=== PATIENT | female | born 1970 | race Caucasian/White ===

== ENCOUNTER 2021-11-08 16:58 | Emergency (ER) | payer OTHER, SELFPAY ==
--- NOTE | ~2021-11-08 | CT_ITS ---
EXAMINATION: CT ABDOMEN AND PELVIS WITHOUT CONTRAST CLINICAL INFORMATION: Left-sided flank pain with history of kidney stones COMPARISON: CTA chest 09/16/2009 TECHNIQUE: Multidetector volumetric imaging was performed from the superior aspect of the liver through the pubic symphysis. Sagittal and coronal reformatted images were obtained on the technologist's workstation. This CT examination was performed using dose optimization techniques as appropriate, variously including the following: *Automated exposure control *Adjustment of mA and/or kV according to patient size (this includes techniques or standardized protocols for targeted exams where dose is matched to indication/reason for exam; i.e. extremities or head) *Use of iterative reconstruction technique DLP: 574 mGy-cm FINDINGS: LUNG BASES: The visualized lung bases are unremarkable. Scarring/atelectasis is present at the right lung base. LIVER, GALLBLADDER, AND BILIARY TREE: The liver is enlarged with an extremely large left lobe of the liver. 2 masses are seen in the left lobe of the liver one measuring 4.7 x 3.4 x 4.5 cm smaller mass just to the left measuring 1.8 x 1.9 x 1.7 cm. These masses measure 40 Hounsfield units and are not simple cysts. Suture lines appear to be present in the liver. No biliary ductal dilatation is present. The gallbladder appears to be absent PANCREAS: Unremarkable. SPLEEN: Upper limits of normal in size at 12.3 cm. ADRENAL GLANDS: Unremarkable. KIDNEYS AND URETERS: The kidneys are normal in size, shape, and attenuation. Bilateral nonobstructing renal calculi are present. 3 calculi are present on the right the largest in the upper pole measuring on the left, at least 5 calculi are seen the largest at the lower pole measuring 4 mm. The largest stone measures 543 Hounsfield units which includes significant partial volume averaging. It is 7.6 cm from the posterior axillary line. No hydronephrosis, hydroureter, or ureteral calculi seen. No perinephric stranding. BLADDER: Poorly filled but no stones are present. GASTROINTESTINAL TRACT: A posterior gastric diverticulum is present (4:120). The small and large bowel are unremarkable. The appendix is unremarkable. ABDOMINAL WALL: No significant hernia is appreciated. LYMPH NODES: No retroperitoneal lymphadenopathy. VASCULAR: Unremarkable. PELVIC VISCERA: There is an anteverted lobular fibroid uterus, tipped to the right. Abnormal adnexal mass or free intraperitoneal fluid is not seen. OSSEOUS STRUCTURES: Unremarkable. CT/CT abdomen pelvis wo con IMPRESSION: 1. There is bilateral nephrolithiasis but no evidence of obstruction. 2. Markedly enlarged liver with 2 solid masses. These could represent hemangiomas but appearances are indeterminate. Further evaluation with dynamic liver MRI is recommended. Fleischner guidelines were followed.
[2021-11-08 18:01] VITALS: BP 125/68; PULSE 96; RESP 18; TEMP 36.8; O2SAT 100; BMI 24.7
--- NOTE | 2021-11-08 20:01 | PC.NURSE ---
Per patient i dont' want to repeat the same stuff the urgent care already did .
--- NOTE | 2021-11-08 20:05 | ED.GENADULT ---
HPI - General Adult General Chief complaint: General Medical Stated complaint: Kidney stone-sent from urgent care Time Seen by Provider: 11/08/21 20:05 Source: patient Mode of arrival: ambulatory History of Present Illness HPI narrative: patient been coughing last few days also complaining of left flank pain she is on her periods was seen at urgent care center chest x-ray was negative COVID was negative ,in the urine did notice some blood and sent the patient here patient does have history of kidney stone about 5 years ago no vomiting no diarrhea no chills no fever no abdominal pain Related Data Allergies Allergy/AdvReac Type Severity Reaction Status Date / Time aspirin [ASPIRIN] Allergy Intermediate NAUSEA & Verified 11/08/21 18:01 VOMITING ciprofloxacin [From CIPRO] Allergy Intermediate RASH Verified 11/08/21 18:01 gluten [GLUTEN] Allergy Intermediate WORSENED Verified 11/08/21 18:01 IBS SYMPTOMS From CIPRO Allergy Intermediate RASH Uncoded 11/08/21 18:01 From DEMEROL Allergy Intermediate NAUSEA, Uncoded 11/08/21 18:01 VOMITING, VISUAL HALLUCINATIONS SURGICAL TAPE Allergy Intermediate RASH Uncoded 11/08/21 18:01 [facility]LY [facility] Past Medical History Medical History (Updated 11/09/21 @ 00:02 by Ruby Beasley) Anxiety disorder, unspecified Disorder of thyroid, unspecified Hepatic hemangioma IBS (irritable bowel syndrome) Migraines Surgical History (Updated 11/08/21 @ 18:06 by Yadira Najera RN) H/O thyroidectomy Hx of excision of tumor of brain meninges Social History Social History Alcohol intake: never Smoked in Last 30 Days: No Use of substances other than those prescribed or required for medical reasons: No Advance Directives: No Advance Directives Information Provided: No Patient : No Physical Exam ED Vital Signs: Vital Signs - 24 hr 11/08/21 18:01 11/08/21 20:52 Temperature 98.3 F Pulse Rate 96 85 Respiratory Rate 18 18 Blood Pressure 125/68 138/56 L Pulse Oximetry 100 100 BMI result Body Mass Index 24.7 Appearance: Alert. Oriented X3. No acute distress. ENT: Pharynx normal. Oral Mucosa moist Neck: Normal inspection. Neck supple. CVS: Normal heart rate and rhythm. Pulses normal. Respiratory: No respiratory distress. Equal air entry bilateral, no wheezing/rales/rhonchi Abdomen: Soft and nontender. Bowel sounds are present, no mass palpable, mild left CVA tenderness Skin: Skin warm and dry. Normal skin color. Normal skin turgor. Extremities: No lower extremity edema. No calf tenderness Neuro: Oriented X 3. Medical Decision Making MDM Narrative Medical decision making narrative: patient's CT scan showed bilateral nonobstructive kidney stones without any hydronephrosis not a cause for the pain likely muscular discharge patient home advised to follow with urologist Lab Data Lab results reviewed: Yes I reviewed the patient's lab results. Labs: Lab Results 11/08/21 Range/Units 20:56 Urine Color YELLOW Urine Appearance CLEAR Urine pH 5.5 (5.0-8.0) Ur Specific [place] <= 1.005 (1.005-1.025) Urine Protein NEG (NEG-TRACE) MG/DL Urine Glucose (UA) NEG (NEG) MG/DL Urine Ketones NEG (NEG) MG/DL Urine Blood 3+ H (NEG) Urine Nitrite NEG (NEG) Ur Leukocyte Esterase NEG (NEG) Urine RBC 5-9 H (0) /HPF Urine WBC 0 (0-4) /HPF Ur Squamous Epith Cells 1+ /LPF Urine Bacteria 1+ /LPF Discharge Plan Discharge Clinical Impression: Bilateral kidney stones Patient Disposition: Home, Self-Care Instructions: Kidney Stones (ED) Additional Instructions: drink plenty of fluids your kidney stone likely not causing the pain Tylenol/Motrin for pain as needed follow with Urology Referrals: William Hollins MD [Physician] - 1 week Interventions: ED Discharge Assessment Last Done: 11/08/21 22:02 Discharge Date/Time: 11/08/21 22:02
[2021-11-08 20:52] VITALS: BP 138/56; PULSE 85; RESP 18; O2SAT 100
[2021-11-08 21:03] LABS: Appearance Urine CLEAR; Color Urine YELLOW; Glucose Urine UA NEG (NEG); Leukocyte Esterase Urine NEG (NEG); Nitrite Urine NEG (NEG); PH 5.5 (5.0-8.0); Specific Gravity - Urine <= 1.005 (1.005-1.025); UACC Culture Trigger NO; Urine Blood 3+ (NEG); Urine Ketones NEG (NEG); Urine Protein NEG (NEG-TRACE)
[2021-11-08 21:10] LABS: Bacteria Urine 1+ /LPF; Squamous Epithelial Cell Urine 1+ /LPF; WBC Urine 0 /HPF (0-4)
== END 2021-11-08 22:02 | disposition home or self-care (01) ==
PROVIDERS: Emergency Provider Internal Medicine; PCP Nurse Practitioner Family
DX: N20.0 Calculus of kidney (principal); R10.9 Unspecified abdominal pain; R16.0 Hepatomegaly, not elsewhere classified
CPT/HCPCS: 74176; 81001; 81003; 99284

== ENCOUNTER → 2021-11-29 08:17 | Outpatient (BNVA) | payer OTHER, SELFPAY | PROVIDERS: PCP Nurse Practitioner Family | DX: Z13.89 Encounter for screening for other disorder (principal) ==

== ENCOUNTER → 2021-12-28 11:20 | Outpatient (BNVA) | payer OTHER, SELFPAY | PROVIDERS: PCP Nurse Practitioner Family; Visit Provider Urology | DX: N20.0 Calculus of kidney (principal) ==

== ENCOUNTER 2022-06-10 10:37 | Outpatient (REF) | payer OTHER, SELFPAY ==
--- NOTE | ~2022-06-10 | US_ITS ---
EXAMINATION: US RETROPERITONEAL LIMITED (RENAL ONLY) CLINICAL INFORMATION: Calculus of kidney. COMPARISON: CT abdomen and pelvis without contrast 11/08/2021. TECHNIQUE: Real-time imaging of the kidneys. FINDINGS: RIGHT KIDNEY: 8.1 x 4.5 x 4.4 cm (SAG x AP x TRV). The kidney is normal in size, contour, and echogenicity. Renal cortical thickness is normal. No hydronephrosis. There are several nonobstructive renal calculi, in the number of approximately 6, largest measuring up to 4 mm in size. There is a 0.8 x 0.8 x 0.9 cm homogeneously hyperechoic lesion in the lateral surface of the interpolar region, which demonstrated macroscopic fat on a prior CT from 11/08/2021, favoring to represent an angiomyolipoma. LEFT KIDNEY: 12.1 x 5.6 x 4.4 cm (SAG x AP x TRV). The kidney is normal in size, contour, and echogenicity. Renal cortical thickness is normal. No hydronephrosis. There is a 0.4 cm nonobstructive calculus in the upper pole. There is a very small 0.7 x 0.5 x 0.6 cm homogeneously hyperechoic lesion in the upper pole, possibly correlated with a tiny focus of macroscopic fat on the prior CT from 11/08/2021. US/US renal BI IMPRESSION: 1. Bilateral nonobstructive renal calculi, the largest measuring up to 4 mm. 2. There is a 0.9 cm hyperechoic lesion in the lateral surface of the interpolar region of the right kidney, which likely represents an angiomyolipoma. 3. There is a smaller approximately 0.7 cm homogeneously hyperechoic lesion in the upper pole of the left kidney, possibly correlating with a tiny focus of macroscopic fat on the prior CT, though overall limitedly assessed due to its size. Recommend a follow-up renal ultrasound in 6 months to reassess.
== END 2022-06-10 10:38 | disposition home or self-care (01) ==
LOC: HO.US 10:37
PROVIDERS: Visit Provider Urology
DX: N20.0 Calculus of kidney (principal)
CPT/HCPCS: 76775

== ENCOUNTER 2023-06-20 10:38 | Outpatient (REF) | payer OTHER, SELFPAY ==
--- NOTE | ~2023-06-20 | US_ITS ---
EXAMINATION: US RETROPERITONEAL LIMITED (RENAL ONLY) CLINICAL INFORMATION: Calculus of kidney. COMPARISON: Renal ultrasound 06/10/2022, CT abdomen and pelvis 11/08/2021. TECHNIQUE: Real-time imaging of the kidneys. Limited visualization due to bowel gas. FINDINGS: RIGHT KIDNEY: 10.0 x 3.5 x 4.8 cm (SAG x AP x TRV). Renal calculi measures 0.4 cm and 0.3 cm in the lower pole. No hydronephrosis. Right renal midpole 1.0 x 0.8 x 0.8 cm echogenic lesion measured 0.8 x 0.8 x 0.9 cm in 2021 and demonstrated macroscopic fat on CT of 11/08/2021 felt to possibly represent an angiomyolipoma. Limited visualization. LEFT KIDNEY: 11.2 x 4.5 x 4.3 cm (SAG x AP x TRV). Midpole 0.4 cm and lower pole 0.4 cm calculi. No hydronephrosis. Left renal upper pole 0.7 x 0.6 x 0.5 cm echogenic lesion measured 0.7 x 0.5 x 0.6 cm on ultrasound of 06/13/2022 and felt to demonstrate macroscopic fat on prior CT, characterization compares small size. US/US renal BI IMPRESSION: 1. Bilateral nephrolithiasis. No hydronephrosis. 2. Right renal 1.0 cm lytic lesion likely represents an angiomyolipoma. Left renal 0.7 cm upper pole echogenic lesion, possibly representing an angiomyolipoma, but difficult characterize due to small size. Dedicated MRI employing renal mass protocol should be considered for further evaluation.
== END 2023-06-20 10:39 | disposition home or self-care (01) ==
LOC: HO.US 10:38
PROVIDERS: PCP Nurse Practitioner Family; Visit Provider Urology
DX: N20.0 Calculus of kidney (principal)
CPT/HCPCS: 76775

== ENCOUNTER 2023-07-09 11:27 | Outpatient (AMB) | payer OTHER, SELFPAY ==
--- NOTE | 2023-07-09 11:40 | A.OFFVIS_ITS ---
Intake Intake Visit Reasons: 1Y US(set) Intake Note: Patient is present for Ultrasound Follow Up Urology Medication: Vitamin B6 Blood Thinner: none Experimental Psychologist Required: No Allergies aspirin [ASPIRIN] Allergy (Intermediate, Verified 12/28/21 11:21) NAUSEA & VOMITING ciprofloxacin [From CIPRO] Allergy (Intermediate, Verified 12/28/21 11:21) RASH gluten [GLUTEN] Allergy (Intermediate, Verified 12/28/21 11:21) WORSENED IBS SYMPTOMS From CIPRO Allergy (Intermediate, Uncoded 12/28/21 11:21) RASH From DEMEROL Allergy (Intermediate, Uncoded 12/28/21 11:21) NAUSEA, VOMITING, VISUAL HALLUCINATIONS SURGICAL TAPE Allergy (Intermediate, Uncoded 12/28/21 11:21) RASH Medication List - Last Reconciled 07/09/23 by William Hollins MD [id number] 50-325-40 mg 1 - 2 tabs PO desog-e.estradiol/e.estradiol 0.15-0.02 mgx21 /0.01 mg x 5 ([place] (28)) 0 tabs PO levothyroxine 100 mcg PO DAILY nitrofurantoin macrocrystal 100 mg PO BID nortriptyline 25 mg PO TID omeprazole 20 mg PO DAILY ondansetron HCl 8 mg PO DAILY PRN pyridoxine (vitamin B6) 50 mg PO DAILY 90 days pyridoxine (vitamin B6) (Vitamin B-6) 50 mg PO DAILY HPI HPI Comments History of Present Illness Details Monet is a pleasant female. She is a patient of . She seen for the following urologic conditions - nephrolithiasis Stable stone burden Reiterated need to maintain fluid intake Vitamin B6 and lemon juice Twelve month follow-up - renal ultrasound and KUB Noted background with prostate cancer father, breast cancer and, prior benign brain lesion Nephrolithiasis Prior history stones Medical history complicated by large hemangioma on liver and seen by specialist from [facility]. Also prior brain tumor with gamma knife therapy. Imaging - 10/30 CT scan shows high right kidney u nder diaphragm with lower left kidney and liver larger on left than right, bilateral 4 mm stones - 06/01 renal ultrasound bilateral 4 mm stones - 06/02 renal ultrasound bilateral 3-4 m m stones 24 hr urine - 12/30 low volume, borderline low citrat e otherwise all other parameters within normal limits PFSH Medical History Anxiety disorder, unspecified Disorder of thyroid, unspecified Hepatic hemangioma IBS (irritable bowel syndrome) Migraines Renal calculi Surgical History H/O thyroidectomy Hx of excision of tumor of brain meninges Social History Alcohol intake: never Review of Systems Const Denies chills and Denies fever(s) Card Reports no additional complaints and Denies syncope Resp Denies cough GI Denies abdominal pain and Denies heartburn Reports as per HPI and Denies change in libido Neuro Denies syncope Psych Denies change in libido Endo Denies change in libido Physical Exam Const General: cooperative, healthy appearing, comfortable and no acute distress Orientation/consciousness: patient oriented x3 HEENT Face and sinus: Yes normal facial exam Mouth: moist mucous membranes Neck Neck: Yes normal visual inspection, Yes full ROM and Yes trachea midline Chest Chest palpation & inspection: normal inspection of the chest Resp Effort & Inspection: normal respiratory effort, able to speak in complete sentences and no respiratory distress GI Inspection: Yes normal to inspection Back/Spine/Pelvis Cervical Spine: normal cervical lordosis Thoracic/Lumbar Spine: thoracic and lumbar spine normal to inspection Skin General skin exam: no rashes or lesions noted Neuro General: patient oriented x3, gait normal, tone normal and moves all extremities Extrem General: Yes normal to inspection and Yes capillary refill normal Results AMB Urinalysis, Automated UA Leukoctes 15 Justyn/uL Last Edit by CHAD Gant on 07/09/23 11:45 UA Nitrite Negative Last Edit by CHAD Gant on 07/09/23 11:45 UA Urobilinogen 0.2 mg/dL Last Edit by CHAD Gant on 07/09/23 11:4 5 UA Protein 15 mg/dL Last Edit by Surinder Maria A on 07/09/23 11:45 UA pH 7.5 Last Edit by Surinder Maria A on 07/09/23 11:45 UA Blood 25 Kyle/uL Last Edit by Surinder Maria A on 07/09/23 11:45 UA Specific [place] 1.010 Last Edit by Surinder Maria A on 07/09/23 11: 45 UA Ketone Negative Last Edit by Surinder Maria A on 07/09/23 11:45 UA Bilirubin 0 mg/dL Last Edit by Surinder Maria A on 07/09/23 11:45 UA Glucose 0 mg/dL Last Edit by Surinder Maria A on 07/09/23 11:45 Results Reviewed Results Reviewed: Laboratory Last Values Urine pH (Auto) 7.5 07/09/23 11:44 Specific [place] (Auto) 1.010 07/09/23 11:44 Urine Protein (Auto) 15 mg/dL 07/09/23 11:44 Glucose (UA)(Auto) 0 mg/dL 07/09/23 11:44 Urine Ketones (Auto) Negative 07/09/23 11:44 Urine Blood (Auto) 25 Kyle/uL 07/09/23 11:44 Urine Nitrite (Auto) Negative 07/09/23 11:44 Urine Bilirubin (Auto) 0 mg/dL 07/09/23 11:44 Urine Urobilinogen (Auto) 0.2 mg/dL 07/09/23 11:44 Leukocyte Esterase (Auto) 15 Justyn/uL 07/09/23 11:44 Assessment & Plan Assessment & Plan (1) Renal calculi: Code(s): N20.0 - Calculus of kidney Plan Twelve month follow-up imaging Orders: Orders US renal BI 364 Days N20.0 - Calculus of kidney XR KUB 364 Days N20.0 - Calculus of kidney AMB Urinalysis Automated Today Z13.9 - Encounter for screening, unspecified Medications: Refilled pyridoxine (vitamin B6) 50 mg PO DAILY 90 caps 3RF 90 days N20.0 - Calculus of kidney Patient Instructions: Imaging studies, laboratory and physical exam results were discussed and reviewed in detail. No major barriers to patient understanding were identified. An opportunity to ask questions regarding the treatment plan was provided. All questions were answered. The patient expressed understanding and agreement with the above treatment plan. The patient is aware they should contact our office by phone for worsening of their current condition or the appearance of new urologic symptoms. Compliance is encouraged with any medications and followup testing that is ordered. It is a privilege to participate in the urologic care of your patient. If you have any questions or concerns regarding treatment for the above conditions, or other urologic issues, please do not hesitate to contact me. The office telephone contact is [phone]. This note is constructed using voice recognition software. While every effort has been made to ensure accuracy management supervisor errors may have been included. Yours sincerely, Dr William Hollins MD, [facility] - Urology Providers of Expert, Compassionate Care for the Genitourinary System Coding Level of Care Code Est Pt Level 4 (06080) Diagnoses Renal calculi N20.0
== END 2023-07-09 12:26 | disposition home or self-care (01) ==
PROVIDERS: Visit Provider Urology
DX: N20.0 Calculus of kidney (principal); Z13.9 Encounter for screening, unspecified
CPT/HCPCS: 99213

== ENCOUNTER → 2023-07-09 11:27 | Outpatient (BNVA) | payer OTHER, SELFPAY | PROVIDERS: Visit Provider Urology | DX: N20.0 Calculus of kidney (principal) | CPT/HCPCS: 81003 ==

== ENCOUNTER 2024-07-02 08:08 | Outpatient (REF) | payer OTHER, SELFPAY | END 2024-07-02 08:09 | disposition home or self-care (01) | LOC: HO.US 08:08 | PROVIDERS: PCP Nurse Practitioner Family; Visit Provider Urology | DX: N20.0 Calculus of kidney (principal) | CPT/HCPCS: 74018; 76775 ==

== ENCOUNTER → 2024-07-02 08:10 | Outpatient (BNV) | payer OTHER, SELFPAY | PROVIDERS: PCP Nurse Practitioner Family; Visit Provider Radiology Diagnostic Radiology | DX: N20.0 Calculus of kidney (principal) | CPT/HCPCS: 76775 ==

== ENCOUNTER 2024-07-06 09:25 | Outpatient (AMB) | payer OTHER, SELFPAY ==
--- NOTE | 2024-07-06 09:35 | MHC.OFFVIS ---
Intake Visit Reasons: US Follow Up(set) Intake Note: Patient is present for US F/U Urology Medication:VITAMIN B6 Antibiotic Allergy:NONE Blood Thinner:NONE Maintenance Shop Manager Required: No Allergies aspirin [ASPIRIN] Allergy (Intermediate, Verified 07/06/24 09:36) NAUSEA & VOMITING ciprofloxacin [From CIPRO] Allergy (Intermediate, Verified 07/06/24 09:36) RASH gluten [GLUTEN] Allergy (Intermediate, Verified 07/06/24 09:36) WORSENED IBS SYMPTOMS From CIPRO Allergy (Intermediate, Uncoded 07/06/24 09:36) RASH From DEMEROL Allergy (Intermediate, Uncoded 07/06/24 09:36) NAUSEA, VOMITING, VISUAL HALLUCINATIONS SURGICAL TAPE Allergy (Intermediate, Uncoded 07/06/24 09:36) RASH HPI Comments Details: Monet is a pleasant female. She is a patient of . She seen for the following urologic conditions - nephrolithiasis Stone burden with 2-3 small 4-5 mm stones on left side Discussed ESWL She would like to proceed Would prefer LMA at time of procedure due to anxiety surrounding surgical interventions Noted background with prostate cancer father, breast cancer and, prior benign brain lesion Nephrolithiasis Prior history stones Medical history complicated by large hemangioma on liver and seen by specialist from [facility]. Also prior brain tumor with gamma knife therapy. Imaging - 10/30 CT scan shows high right kidney under diaphragm with lower left kidney and liver larger on left than right, bilateral 4 mm stones - 06/01 renal ultrasound bilateral 4 mm stones - 06/02 renal ultrasound bilateral 3-4 mm stones - 06/03 renal ultrasound bilateral 3-4 mm stone 24 hr urine - 12/30 low volume, borderline low citrate otherwise all other parameters within normal limits PFSH Medical History Anxiety disorder, unspecified Disorder of thyroid, unspecified Hepatic hemangioma IBS (irritable bowel syndrome) Migraines Renal calculi Surgical History H/O thyroidectomy Hx of excision of tumor of brain meninges Social History Alcohol intake: never Review of Systems Const Denies chills and Denies fever(s) Card Reports no additional complaints and Denies syncope Resp Denies cough GI Denies abdominal pain and Denies heartburn Reports as per HPI and Denies change in libido Neuro Denies syncope Psych Denies change in libido Endo Denies change in libido Physical Exam Const General: cooperative, healthy appearing, comfortable and no acute distress Orientation/consciousness: patient oriented x3 HEENT Face and sinus: Yes normal facial exam Mouth: moist mucous membranes Neck Neck: Yes normal visual inspection, Yes full ROM and Yes trachea midline Chest Chest palpation & inspection: normal inspection of the chest Resp Effort & Inspection: normal respiratory effort, able to speak in complete sentences and no respiratory distress GI Inspection: Yes normal to inspection Back/Spine/Pelvis Cervical Spine: normal cervical lordosis Thoracic/Lumbar Spine: thoracic and lumbar spine normal to inspection Skin General skin exam: no rashes or lesions noted Neuro General: patient oriented x3, gait normal, tone normal and moves all extremities Extrem General: Yes normal to inspection and Yes capillary refill normal Assessment & Plan Assessment & Plan (1) Renal calculi: Code(s): N20.0 - Calculus of kidney Category: Medical Plan Extracorporeal Shock Wave Lithotripsy We discussed the nature of the decision and reasonable alternatives for performing the above surgery. Interventions include chemical dissolution, ESWL, ureteroscopy with laser lithotripsy and stent placement, PCNL. Options such as medical therapy were discussed. The relative uncertainties and benefits related to each alternate procedure were adequately discussed. General surgical risks including, but not limited to, pain, bleeding, infection, myocardial infarction, pulmonary embolus, deep vein thrombosis and cerebrovascular accident which may result in further hospitalization were discussed. Full disclosure of the procedure as well as all major risks, benefits and complications were discussed including but not limited to risks of bleeding, injury to the kidney with hematoma or diego-hematoma, failure to fragments stone, potential for ureteric obstruction from stone passage and need for secondary procedures. There is a small long-term risk of hypertension and a question patt of diabetes. Success rate of fragmentation and passage is approximately 70- 75%. This is compared to the risks and benefits for ureteroscopy which has a higher success rate but is a more invasive procedure. The success rate of the procedure was discussed. Success of the procedure in the short-term does not necessarily guarantee that long-term success will be maintained. Suitable follow up will need to be maintained. The patient showed understanding of the discussion as well as the typical recovery time, and the outpatient nature of this procedure. Opportunity was given for questions. Repeat-back protocol used to confirm understanding. They wish to proceed with left ESWL Patient Instructions: Imaging studies, laboratory and physical exam results were discussed and reviewed in detail. No major barriers to patient understanding were identified. An opportunity to ask questions regarding the treatment plan was provided. All questions were answered. The patient expressed understanding and agreement with the above treatment plan. The patient is aware they should contact our office by phone for worsening of their current condition or the appearance of new urologic symptoms. Compliance is encouraged with any medications and followup testing that is ordered. It is a privilege to participate in the urologic care of your patient. If you have any questions or concerns regarding treatment for the above conditions, or other urologic issues, please do not hesitate to contact me. The office telephone contact is [phone]. This note is constructed using voice recognition software. While every effort has been made to ensure accuracy student services advisor errors may have been included. Yours sincerely, Dr William Hollins MD, [facility] - Urology Providers of Expert, Compassionate Care for the Genitourinary System Coding Level of Care Code Est Pt Level 4 (53372) Diagnoses Renal calculi N20.0
== END 2024-07-06 10:14 | disposition home or self-care (01) ==
PROVIDERS: PCP Nurse Practitioner Family; Visit Provider Urology
DX: N20.0 Calculus of kidney (principal)
CPT/HCPCS: 99214

== ENCOUNTER 2024-08-25 06:14 | Day surgery (SDC) | payer OTHER, SELFPAY ==
--- NOTE | 2024-08-24 10:22 | P.CONAN_ITS ---
Documented by User: Jazz Harkins NP 08/24/24 10:23 HPI - Anesthesia Eval Consult details Narrative: 54yo F for Left ESWL PMFSH Active Problems Active Problems: All Active Problems Renal calculi (Acute) Past Medical History Medical History Anxiety disorder, unspecified Disorder of thyroid, unspecified Hepatic hemangioma IBS (irritable bowel syndrome) Migraines Renal calculi Surgical History Surgical History H/O thyroidectomy Hx of excision of tumor of brain meninges Social History Social History Are you a primary child day care teacher to a significant other at home: No Do you presently have visiting nurse or other home services: No Alcohol intake: never Patient Tobacco Use Status: Never used Tobacco Use of substances other than those prescribed or required for medical reasons: No Have you been hit, kicked, punched, or otherwise hurt by someone within the past year? If so, by whom?: No Are you DNR?: No Advance Directives: No Advance Directives Information Provided: Yes Recently lost weight without trying: No Nutrition Risks: No Nutritional Risk Patient : No Meds Allergies Allergy/AdvReac Type Severity Reaction Status Date / Time aspirin [ASPIRIN] Allergy Intermediate NAUSEA & Verified 08/25/24 06:51 VOMITING ciprofloxacin [From CIPRO] Allergy Intermediate RASH Verified 08/25/24 06:51 gluten [GLUTEN] Allergy Intermediate WORSENED Verified 08/25/24 06:51 IBS SYMPTOMS From CIPRO Allergy Intermediate RASH Uncoded 07/06/24 09:36 From DEMEROL Allergy Intermediate NAUSEA, Uncoded 07/06/24 09:36 VOMITING, VISUAL HALLUCINATIONS SURGICAL TAPE Allergy Intermediate RASH Uncoded 07/06/24 09:36 Home Medications ?Medication ?Instructions ?Recorded ?Confirmed ?Last Taken ?Type gohsxevfhv-vwrcayngutmin-fbqnypdy 1 - 2 tab PO headache 12/28/21 07/09/23 Unknown History 50 mg-325 mg-40 mg tablet levothyroxine 100 mcg tablet 100 mcg PO DAILY 12/28/21 08/25/24 Unknown History nortriptyline 25 mg capsule 25 mg PO TID 12/28/21 08/25/24 Unknown History ondansetron HCl 8 mg tablet 8 mg PO DAILY PRN nausea 12/28/21 08/25/24 Unknown History pyridoxine (vitamin B6) 50 mg 50 mg PO DAILY 12/28/21 08/25/24 Unknown History tablet (Vitamin B-6) omeprazole 20 mg capsule,delayed 20 mg PO DAILY 07/08/22 08/25/24 Unknown History release atogepant 60 mg tablet (Qulipta) 60 mg PO DAILY 08/25/24 08/25/24 Unknown History fluticasone propionate 50 1 spray intranasal BID 08/25/24 08/25/24 Unknown History mcg/actuation nasal spray,suspension Assessment and Plan Assessment Anesthesia Assessment: Chart Reviewed Documented by User: Alka Travis MD 08/25/24 08:36 [facility] Past Medical History Medical History Anxiety disorder, unspecified Disorder of thyroid, unspecified Hepatic hemangioma IBS (irritable bowel syndrome) Migraines Renal calculi Family History Family history of problems with anesthesia: No Surgical History Surgical History H/O thyroidectomy Hx of excision of tumor of brain meninges History of Problems with Anesthesia: No Social History Social History Are you a primary child day care teacher to a significant other at home: No Do you presently have visiting nurse or other home services: No Alcohol intake: never Patient Tobacco Use Status: Never used Tobacco Use of substances other than those prescribed or required for medical reasons: No Have you been hit, kicked, punched, or otherwise hurt by someone within the past year? If so, by whom?: No Are you DNR?: No Advance Directives: No Advance Directives Information Provided: Yes Recently lost weight without trying: No Nutrition Risks: No Nutritional Risk Patient : No Meds Allergies Allergy/AdvReac Type Severity Reaction Status Date / Time aspirin [ASPIRIN] Allergy Intermediate NAUSEA & Verified 08/25/24 06:51 VOMITING ciprofloxacin [From CIPRO] Allergy Intermediate RASH Verified 08/25/24 06:51 gluten [GLUTEN] Allergy Intermediate WORSENED Verified 08/25/24 06:51 IBS SYMPTOMS From CIPRO Allergy Intermediate RASH Uncoded 07/06/24 09:36 From DEMEROL Allergy Intermediate NAUSEA, Uncoded 07/06/24 09:36 VOMITING, VISUAL HALLUCINATIONS SURGICAL TAPE Allergy Intermediate RASH Uncoded 07/06/24 09:36 Home Medications ?Medication ?Instructions ?Recorded ?Confirmed ?Last Taken ?Type jmgarfndfb-keyivvofkrqcp-nakfiobs 1 - 2 tab PO headache 12/28/21 07/09/23 Unknown History 50 mg-325 mg-40 mg tablet levothyroxine 100 mcg tablet 100 mcg PO DAILY 12/28/21 08/25/24 Unknown History nortriptyline 25 mg capsule 25 mg PO TID 12/28/21 08/25/24 Unknown History ondansetron HCl 8 mg tablet 8 mg PO DAILY PRN nausea 12/28/21 08/25/24 Unknown History pyridoxine (vitamin B6) 50 mg 50 mg PO DAILY 12/28/21 08/25/24 Unknown History tablet (Vitamin B-6) omeprazole 20 mg capsule,delayed 20 mg PO DAILY 07/08/22 08/25/24 Unknown History release atogepant 60 mg tablet (Qulipta) 60 mg PO DAILY 08/25/24 08/25/24 Unknown History fluticasone propionate 50 1 spray intranasal BID 08/25/24 08/25/24 Unknown History mcg/actuation nasal spray,suspension Exam Airway Mallampati Class: III TM Dist: >3cm Neck ROM: Full Assessment and Plan Assessment Anesthesia Assessment: Anesthesia Plan Discussed Final Anesthetic Review Family History of Problems with Anesthesia: No History of Problems with Anesthesia: No NPO: Yes ASA Class: II Final Preanesthetic Review: No Changes in Pt Med Stat, Meds/Allgs Chart Reviewed, Consent Obtained/Reviewed, Anes Risks/Benef Reviewed and DNR Form (If Appl.) Patient Risk: Low Procedure Risk: Low Anesthetic Plan Anesthetic Plan: GA Disposition: Standard PACU
[2024-08-25] VITALS (7 sets, daily range): BP systolic 147–170; BP diastolic 78–90; PULSE 73–82; RESP 14–16; TEMP 36.1–36.4; O2SAT 97–100; BMI 24.9
--- NOTE | ~2024-08-25 | XR_ITS ---
CLINICAL HISTORY: left stones 1 view abdomen Comparison: None Findings: Central abdominal soft tissue density which obscures the renal shadows. Stool within normal caliber colon. IMPRESSION: Central abdominal soft tissue obscures the renal shadows. No definite stones identified. Consider CT This document has been electronically signed by: Bettina Burns MD on 08/25/2024 06:44:46
[2024-08-25] MEDS: Lactated Ringers 1,000 ML 100 ML IVCONT (07:27)
--- NOTE | 2024-08-25 08:38 | P.HPSUR_ITS ---
Pre-Procedural Eval Section A - 24 Hr Update-Section A only Date of Service: 08/25/24 The patient is an INPATIENT: No Changes since office visit: No Cold of Flu in the past 2 weeks, No New Medical Problems, No Changes in Medication and No Patient answered all questions The patient has been examined within 24 hours of the surgical procedure. The History & Physical has been completed within 30 days and I have reviewed it.: Yes Section B - Complete if H&P > 30 days Chief Complaint: Calculus of kidney Details of Present Illness: left eswl Relevant Social History: None Present Medications: None Medical History: No relevant PMH History of Previous Operations: Relevant previous surgery/procedure and date(s) Allergies: Allergies Allergy/AdvReac Type Severity Reaction Status Date / Time aspirin [ASPIRIN] Allergy Intermediate NAUSEA & Verified 08/25/24 06:51 VOMITING ciprofloxacin [From CIPRO] Allergy Intermediate RASH Verified 08/25/24 06:51 gluten [GLUTEN] Allergy Intermediate WORSENED Verified 08/25/24 06:51 IBS SYMPTOMS From CIPRO Allergy Intermediate RASH Uncoded 07/06/24 09:36 From DEMEROL Allergy Intermediate NAUSEA, Uncoded 07/06/24 09:36 VOMITING, VISUAL HALLUCINATIONS SURGICAL TAPE Allergy Intermediate RASH Uncoded 07/06/24 09:36 Review of Systems Sugical H&P ROS: Negative: Constitution, Cardiovascular, Respiratory, Neuro logical, Psychiatric, Hem-Onc, Allergic/Immunologic, Gastrointestinal, Genitourinary, Musculoskeletal, Integumentary, Endocrine and Eyes/Ears/Nose/Throat Exam Surgical H&P Exam: Normal: HEENT, Normal: Heart, Normal: Lungs, Normal: Extremities, Normal: Abdomen, Normal: Skin and Normal: Neurological Plan Diagnosis/Plan: Unchanged (left eswl) I have reviewed the history and physical and performed a pertinent physical examination on my patient. No changes have occurred unless specified. Time Spent With Patient Time: Total time managing care of this patient today ____ minutes.
--- NOTE | 2024-08-25 10:22 | P.OP_ITS ---
Operative Note Operative Note Date of Service: 08/25/24 Narrative: PreOperative Diagnosis: left Renal stones Post Operative Diagnosis: left Renal stones Procedure: left ESWL Surgeon: Dr William Hollins Anesthesia: mac/sedation Indications for procedure: The patient understands ESWL may be a staged procedure and subsequent intervention may be required based on imaging after ESWL. Quoted stone clearance rates for a solitary procedure are in the 70-80% range based primarily on stone location. They also understand there is a risk of bleeding to the kidney, infection, damage to adjacent organs, and stone migration following the procedure. - Imaging left 5mm Procedure optimization has been performed with IV acetaminophen given in the holding area and 1 L of lactated Ringer's to be given in order to optimize the fluid-stone interface. 20 mg of IV Lasix will be given in the last 5 minutes of the procedure to optimize stone clearance. Procedure: After informed consent was verified the patient was brought to the operating room and placed in a supine position. Anesthesia was performed per protocol. Safety pause time-out was performed. Imaging was displayed in the room and laterality confirmed. ESWL was performed. The 1st 500 shocks were performed at 60 hertz. These were performed with incre asing power. Once maximum power was reached the rate was increased to 180 hertz. A total of 2500 shocks were given. Targeted imaging with ultrasound/fluoroscopy showed stone smudging suggestive of disintegration. The patient tolerated the procedure well and was transferred to the recovery area upon completion. Post procedure imaging will be organized. There was no evidence for flank discoloration.
== END 2024-08-25 10:58 | disposition home or self-care (01) ==
PROVIDERS: PCP Nurse Practitioner Family; Visit Provider Urology
PROC: (CPT 50590; principal; 2024-08-25 08:30)
DX: N20.0 Calculus of kidney (principal); Z87.442 Personal history of urinary calculi; D18.03 Hemangioma of intra-abdominal structures; L23.1 Allergic contact dermatitis due to adhesives; F41.9 Anxiety disorder, unspecified; K58.9 Irritable bowel syndrome, unspecified; E07.9 Disorder of thyroid, unspecified; Z79.899 Other long term (current) drug therapy; Z86.011 Personal history of benign neoplasm of the brain; Z91.018 Allergy to other foods; Z88.6 Allergy status to analgesic agent; Z88.1 Allergy status to other antibiotic agents; Z88.8 Allergy status to other drugs, medicaments and biological substances; Z98.890 Other specified postprocedural states
CPT/HCPCS: 50590; 74018; J1100; J2003; J2250; J2405; J2704; J3010

== ENCOUNTER → 2024-08-25 06:14 | Outpatient (BNV) | payer OTHER, SELFPAY | PROVIDERS: PCP Nurse Practitioner Family; Visit Provider Urology | DX: N20.0 Calculus of kidney (principal) | CPT/HCPCS: 50590 ==

== ENCOUNTER → 2024-08-25 06:30 | Outpatient (BNV) | payer OTHER, SELFPAY | PROVIDERS: PCP Nurse Practitioner Family; Visit Provider Radiology Diagnostic Radiology | DX: N20.0 Calculus of kidney (principal) | CPT/HCPCS: 74018 ==

== ENCOUNTER 2025-03-03 12:21 | Outpatient (REF) | payer OTHER, SELFPAY ==
--- NOTE | ~2025-03-03 | US_ITS ---
CLINICAL HISTORY: N20.0 - Calculus of kidney US Renal Comparison: CR - XR KUB - 08/25/24 06:24 EST US/SR - US RENAL BI - 07/02/24 08:21 EST Findings: Right kidney normal size and echotexture, 9.0 cm length. 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 2 mm calculi in the lower pole and interpolar regions. Left kidney normal size and echotexture, 10.4 cm length. 6 mm angiomyolipoma in the upper pole. Four calculi the largest is in the upper pole measuring 3 mm. No collecting system dilatation of either kidney. Normal color Doppler. IMPRESSION: Multiple bilateral renal calculi without hydronephrosis. This document has been electronically signed by: Lashay Gann MD on 03/03/2025 20:56:07
--- OUTSIDE RECORDS SUMMARY | 2025-03-03 12:49 | XMS_ITS | Encounter Summary ---
Author Organization [facility] Address [address] [place] [address] Care Team Providers Care Cranberry Bog Supervisor Name Role Phone Jazz May NP Primary Care Provider Encounter Details Date Type Department Care Team (Late st Contact Info) Description 10/11/[address] [facility] - Main Lab [address] [facility] [address] [place] [id number] Luz Marina Stout NP [address] [place] [address] Anemia, unspecified; Migraine, unspecified, not intractable, without status migrainosus; Hypothyroidism, unspecified Social History Tobacco Use Types Packs/Day Years Used Date Smoking Tobacco: Never Smokeless Tobacco: Never Alcohol Use Standard Drinks/Week Comments Yes 0 (1 standard drink = 0.6 oz pur e alcohol) Comments Unknown Sex and Gender Information Value Date Recorded Sex Assigned at Not on file Legal Sex Female 7:42 AM EST Gender Identity Not on file Sexual Orientation Not on file documented as of this encounter Plan of Treatment Not on file documented as of this encounter Procedures Procedure Name Priority Date/Time Associated Diagnosis Comments COMPLETE BLOOD COUNT Routine 10/11/2024 8:21 AM EST Anemia, unspecified Migraine, unspecified, not intractable, without status migrainosus Hypothyroidism, unspecified BASIC METABOLIC PANEL Routine 10/11/2024 8:21 AM EST Anemia, unspecified Migraine, unspecified, not intractable, without status migrainosus Hypothyroidism, unspecified documented in this encounter Results * Basic metabolic panel (10/11/2024 8:21 AM EST) Sodium 140 133 - 145 mmol/L LAB CHEMISTRY METHOD 10/11/2024 1:50 PM [facility] Potassium 3.9 3.5 - 5.5 mmol/L LAB CHEMISTRY METHOD 10/11/2024 1:50 PM [facility] Chloride 105 96 - 110 mmol/L LAB CHEMISTRY METHOD 10/11/2024 1:50 PM [facility] CO2 28 21 - 32 mmol/L LAB CHEMISTRY METHOD 10/11/2024 1:50 PM [facility] Anion Gap 7 3 - 11 LAB CHEMISTRY METHOD 10/11/2024 1:50 PM [facility] Glucose 79 70 - 100 mg/dL LAB CHEMISTRY METHOD 10/11/2024 1:50 PM [facility] BUN 14 5 - 25 mg/dL LAB CHEMISTRY METHOD 10/11/2024 1:50 PM [facility] Creatinine 0.76 0.50 - 1.10 mg/dL LAB CHEMISTRY METHOD 10/11/2024 1:50 PM EST [facility] eGFR 94 >=60 mL/min/1. 73m2 LAB CHEMISTRY METHOD 10/11/2024 1:50 PM [facility] Comment:Calculation based on the Chronic Kidney Disease Epidemiology Collaboration (CKD-EPI) equation refit without adjustment for race. BUN/Creatinine Ratio 18.4 LAB CHEMISTRY METHOD 10/11/2024 1:50 PM [facility] Calcium 9.7 8.5 - 10.5 mg/dL LAB CHEMISTRY METHOD 10/11/2024 1:50 PM [facility] Blood Venous blood specimen / Unknown Venipuncture / Unknown 10/11/2024 8:21 AM EST 10/11/2024 12:09 PM EST us Luz Marina Stout NP LAB BLOOD ORDERABLES Final Res ult [facility] [address] [place], [place] [address] [phone] * (ABNORMAL) Complete blood count (10/11/2024 8:21 AM EST) [facility] WBC 7.2 4.8 - 10.8 K/mcL LAB HEMETOLOGY METHOD 10/11/2024 1:21 PM [facility] RBC 3.40(L) 3.80 - 4.80 M/mcL LAB HEMETOLOGY METHOD 10/11/2024 1:21 PM [facility] Hemoglobin 10.9(L) 11.5 - 16.0 g/dL LAB HEMETOLOGY METHOD 10/11/2024 1:21 PM [facility] Hematocrit 35.0 35.0 - 47.0 % LAB HEMETOLOGY METHOD 10/11/2024 1:21 PM [facility] MCV 103.2(H) 79.0 - 98.0 FL LAB HEMETOLOGY METHOD 10/11/2024 1:21 PM [facility] MCH 32.2(H) 27.0 - 32.0 pcg LAB HEMETOLOGY METHOD 10/11/2024 1:21 PM [facility] MCHC 31.1(L) 32.0 - 37.0 g/dL LAB HEMETOLOGY METHOD 10/11/2024 1:21 PM [facility] RDW 13.2 11.0 - 15.0 % LAB HEMETOLOGY METHOD 10/11/2024 1:21 PM [facility] Platelets 294 130 - 400 K/mcL LAB HEMETOLOGY METHOD 10/11/2024 1:21 PM [facility] MPV 10.1 7.0 - 11.0 FL LAB HEMETOLOGY METHOD 10/11/2024 1:21 PM [facility] NRBC 0.0 <1.0 % LAB HEMETOLOGY METHOD 10/11/2024 1:21 PM EST [facility] NRBC Absolute 0.00 <0.10 K/mcL LAB HEMETOLOGY METHOD 10/11/2024 1:[address] [facility] Blood Venous blood specimen / Unknown Venipuncture / Unknown 10/11/2024 8:21 AM EST 10/11/2024 12:09 PM EST us Luz Marina Stout NP LAB BLOOD ORDERABLES Final Res ult [facility]) [facility] [address] [place] [address], documented in this encounter Visit Diagnoses Diagnosis Anemia, unspecified Migraine, unspecified, not intractable, without status migrainosus Hypothyroidism, unspecified documented in this encounter Care Teams Cranberry Bog Supervisor Relationship Specialty Start Date End Date Jazz May NP [address] [place] [phone] PCP - General 09/17/21 documented as of this encounter
--- OUTSIDE RECORDS SUMMARY | 2025-03-03 12:49 | XMS_ITS | Encounter Summary ---
Author Organization [facility] Address [address] [place] [address] Care Team Providers Care Regulator Tester Name Role Phone Jazz May APRN Primary Care Provider [phone] Encounter Details Date Type Department Care Team (Latest Contact Info) Description 08/25/2020 Lab Requisition [facility] [address] [place] [address] [address] [place] [address] Corky Hogue PA-C [address] [place] [address] Encounter for laboratory testing for COVID-19 virus Social History Tobacco Use Types Packs/Day Years Used Date Smoking Tobacco: Never Assessed Comments Unknown Sex and Gender Information Value Date Recorded Sex Assigned at Not on file Legal Sex Female 2:08 PM EDT Gender Identity Not on file Sexual Orientation Not on file COVID-19 Exposure Response Date Recorded In the last month, have you been in contact with someone who was confirmed or suspected to have Coronavirus / COVID-19? Yes 08/25/2020 10:26 AM EST documented as of this encounter Plan of Treatment Not on file documented as of this encounter Procedures Procedure Name Priority Date/Time Associated Diagnosis Comments COVID-19 (SARS-COV-2) - SEMA4 LAB Routine 08/25/2020 4:52 PM EST Encounter for laboratory testing for COVID-19 virus [ICD-10-CM] documented in this encounter Results * COVID-19 (SARS-COV-2) (SEMA4) (08/25/2020 4:52 PM EST) COVID-19 RT-PCR NOT-DETEC TAYLER Not-Detec tayler 08/26/2020 3:59 PM EST [facility] Comment:Interpretation: The viral RNA was not detected, making the COVID-19 diagnosis less likely. Clinical correlation is highly recommended.Final report signed by Catrachito Avendano, Ph.D., Laboratory DirectorTests performed at [facility] Nasopharyngeal swab / Unknown 08/25/2020 4:52 PM EST 08/25/2020 4:52 PM EST Narrative [facility] - 08/26/2020 3:59 PM EST Performed by [facility] [address] [place] [address], CLIA# [id number] and [place] License# [id number] Corky Hogue PA-C MICROBIOLOGY - GENERAL OR DERABLES Final Result [facility] documented in this encounter Visit Diagnoses Diagnosis Encounter for laboratory testing for COVID-19 virus documented in this encounter Care Teams Regulator Tester Relationship Specialty Start Date End Date Jazz May APRN [address] [place] [address] [place] [address] PCP - General Family Medicine 08/25/20 documented as of this encounter
== END 2025-03-03 12:22 | disposition home or self-care (01) ==
LOC: HO.US 12:21
PROVIDERS: PCP Nurse Practitioner Family; Visit Provider Urology
DX: N20.0 Calculus of kidney (principal)
CPT/HCPCS: 76775

== ENCOUNTER → 2025-03-03 12:23 | Outpatient (BNV) | payer OTHER, SELFPAY | PROVIDERS: PCP Nurse Practitioner Family; Visit Provider Radiology Diagnostic Radiology | DX: N20.0 Calculus of kidney (principal) | CPT/HCPCS: 76775 ==

== ENCOUNTER 2025-03-10 10:32 | Outpatient (AMB) | payer OTHER, SELFPAY ==
--- NOTE | 2025-03-10 10:31 | MHC.OFFVIS ---
Intake Visit Reasons: ESWL f/u Intake Note: Patient is present for ESWL follow up left renal stone c/o Chills and fever Urology Medication:VITAMIN B6 PVR: 121 Antibiotic Allergy:NONE Blood Thinner:NONE Ultrasound done : 03/03/2025 Android Platform Developer Required: No Accompanied by: Self / Same As Patient Allergies aspirin (ASPIRIN) Allergy (Intermediate, Verified 03/10/25 10:32) NAUSEA & VOMITING ciprofloxacin (From CIPRO) Allergy (Intermediate, Verified 03/10/25 10:32) RASH gluten (GLUTEN) Allergy (Intermediate, Verified 03/10/25 10:32) WORSENED IBS SYMPTOMS From CIPRO Allergy (Intermediate, Uncoded 11/15/24 16:18) RASH From DEMEROL Allergy (Intermediate, Uncoded 11/15/24 16:18) NAUSEA, VOMITING, VISUAL HALLUCINATIONS SURGICAL TAPE Allergy (Intermediate, Uncoded 11/15/24 16:18) RASH HPI Comments Details: Monet is a pleasant female. She is a patient of . She seen for the following urologic conditions - nephrolithiasis Stone follow-up Imaging essentially clear UA today 1+ leukocytes Noted background with prostate cancer father, breast cancer and, prior benign brain lesion Has symptoms consistent with subclinical UTI. Feeling of urgency. 1+ leukocytes. If does not resolve over next 24 hours would give antibiotics Nephrolithiasis Prior history stones Medical history complicated by large hemangioma on liver and seen by specialist from [facility]. Also prior brain tumor with gamma knife therapy. Imaging - 10/30 CT scan shows high right kidney under diaphragm with lower left kidney and liver larger on left than right, bilateral 4 mm stones - 06/01 renal ultrasound bilateral 4 mm stones - 06/02 renal ultrasound bilateral 3-4 mm stones - 06/03 renal ultrasound bilateral 3-4 mm stone - 02/02 renal ultrasound angiomyolipoma, question small stone fragment Intervention - 07/04 ESWL 24 hr urine - 12/30 low volume, borderline low citrate otherwise all other parameters within normal limits PFSH Medical History Anxiety disorder, unspecified Disorder of thyroid, unspecified Hepatic hemangioma IBS (irritable bowel syndrome) Migraines Renal calculi Surgical History H/O thyroidectomy Hx of excision of tumor of brain meninges Social History (System 11/15/24 @ 16:18 by Alpa Yao) Are you a primary healthcare market consultant to a significant other at home: No Do you presently have visiting nurse or other home services: No Alcohol intake: never Patient Tobacco Use Status: Never used Tobacco Review of Systems Const Denies chills and Denies fever(s) Card Reports no additional complaints and Denies syncope Resp Denies cough GI Denies abdominal pain and Denies heartburn Reports as per HPI and Denies change in libido Neuro Denies syncope Psych Denies change in libido Endo Denies change in libido Physical Exam Const General: cooperative, healthy appearing, comfortable and no acute distress Orientation/consciousness: patient oriented x3 HEENT Face and sinus: Yes normal facial exam Mouth: moist mucous membranes Neck Neck: Yes normal visual inspection, Yes full ROM and Yes trachea midline Chest Chest palpation & inspection: normal inspection of the chest Resp Effort & Inspection: normal respiratory effort, able to speak in complete sentences and no respiratory distress GI Inspection: Yes normal to inspection Back/Spine/Pelvis Cervical Spine: normal cervical lordosis Thoracic/Lumbar Spine: thoracic and lumbar spine normal to inspection Skin General skin exam: no rashes or lesions noted Neuro General: patient oriented x3, gait normal, tone normal and moves all extremities Extrem General: Yes normal to inspection and Yes capillary refill normal Assessment & Plan Assessment & Plan (1) Renal calculi: Code(s): N20.0 - Calculus of kidney Category: Medical Plan 12 month follow-up imaging Orders: Orders US renal BI 12 Months N20.0 - Calculus of kidney Patient Instructions: This note is constructed using voice recognition software. While every effort has been made to ensure accuracy respiratory physician errors may have been included. Imaging studies, laboratory and physical exam results were discussed and reviewed in detail. No major barriers to patient understanding were identified. An opportunity to ask questions regarding the treatment plan was provided. All questions were answered. The patient expressed understanding and agreement with the above treatment plan. The patient is aware they should contact our office by phone for worsening of their current condition or the appearance of new urologic symptoms. Compliance is encouraged with any medications and followup testing that is ordered. It is a privilege to participate in the urologic care of your patient. If you have any questions or concerns regarding treatment for the above conditions, or other urologic issues, please do not hesitate to contact me. The office telephone contact is [phone]. Sincerely, Dr William Hollins MD, [facility] - Urology Compassionate Specialist Care for the Genitourinary System Coding Level of Care Code Est Pt Level 3 (34713) Complex EM visit Add On G2211 Diagnoses Renal calculi N20.0
--- OUTSIDE RECORDS SUMMARY | 2025-03-10 11:14 | XMS_ITS | Encounter Summary ---
Author Organization [facility] Address [address] [place] [address] Care Team Providers Care Cardiovascular Physician Assistant Name Role Phone Jazz May NP Primary Care Provider Encounter Details Date Type Department Care Team (Late st Contact Info) Description 10/11/[address] [facility] - Main Lab [address] [place] [id number] Luz Marina Stout NP [address] [place] [address] Anemia, unspecified; Migraine, unspecified, not [...] mmol/L LAB CHEMISTRY METHOD 10/11/2024 1:50 PM [facility] Potassium 3.9 3.5 - 5.5 mmol/L LAB CHEMISTRY METHOD 10/11/2024 1:50 PM [facility] Chloride 105 96 - 110 mmol/L LAB CHEMISTRY METHOD 10/11/2024 1:50 PM [facility] CO2 28 21 - 32 mmol/L LAB CHEMISTRY METHOD 10/11/2024 1:50 PM [facility] Anion Gap 7 3 - 11 LAB CHEMISTRY METHOD 10/11/2024 1:50 PM [facility] Glucose 79 70 - 100 mg/dL LAB CHEMISTRY METHOD 10/11/2024 1:50 PM [facility] BUN 14 5 - 25 mg/dL LAB CHEMISTRY METHOD 10/11/2024 1:50 PM [facility] Creatinine 0.76 0.50 - 1.10 mg/dL LAB CHEMISTRY METHOD 10/11/2024 1:50 PM EST [facility] eGFR 94 >=60 mL/min/1. 73m2 LAB CHEMISTRY METHOD 10/11/2024 1:50 PM [facility] Comment:Calculation based on the Chronic Kidney Disease Epidemiology Collaboration (CKD-EPI) equation refit without adjustment for race. BUN/Creatinine Ratio 18.4 LAB CHEMISTRY METHOD 10/11/2024 1:50 PM [facility] Calcium 9.7 8.5 - 10.5 mg/dL LAB CHEMISTRY METHOD 10/11/2024 1:50 PM [facility] Blood Venous blood specimen / Unknown Venipuncture / Unknown 10/11/2024 8:21 AM EST 10/11/2024 12:09 PM EST us Luz Marina Stout NP LAB BLOOD ORDERABLES Final Res ult [facility] [address] [place], [place] [address] [phone] * (ABNORMAL) Complete blood count (10/11/2024 8:21 AM EST) [facility] WBC 7.2 4.8 - 10.8 K/mcL LAB HEMETOLOGY METHOD 10/11/2024 1:21 PM [facility] RBC 3.40(L) 3.80 - 4.80 M/mcL LAB HEMETOLOGY METHOD 10/11/2024 1:21 PM [facility] Hemoglobin 10.9(L) 11.5 - 16.0 g/dL LAB HEMETOLOGY METHOD 10/11/2024 1:21 PM [facility] Hematocrit 35.0 35.0 - 47.0 % LAB HEMETOLOGY METHOD 10/11/2024 1:21 PM [facility] MCV 103.2(H) 79.0 - 98.0 FL LAB HEMETOLOGY METHOD 10/11/2024 1:21 PM [facility] MCH 32.2(H) 27.0 - 32.0 pcg LAB HEMETOLOGY METHOD 10/11/2024 1:21 PM [facility] MCHC 31.1(L) 32.0 - 37.0 g/dL LAB HEMETOLOGY METHOD 10/11/2024 1:21 PM [facility] RDW 13.2 11.0 - 15.0 % LAB HEMETOLOGY METHOD 10/11/2024 1:21 PM [facility] Platelets 294 130 - 400 K/mcL LAB HEMETOLOGY METHOD 10/11/2024 1:21 PM [facility] MPV 10.1 7.0 - 11.0 FL LAB HEMETOLOGY METHOD 10/11/2024 1:21 PM [facility] NRBC 0.0 <1.0 % LAB HEMETOLOGY METHOD 10/11/2024 1:21 PM EST [facility] NRBC Absolute 0.00 <0.10 K/mcL LAB HEMETOLOGY METHOD 10/11/2024 1:21 PM EST [facility] Blood Venous blood specimen / Unknown Venipuncture / Unknown 10/11/2024 8:21 AM EST 10/11/2024 12:09 PM EST us Luz Marina Stout NP LAB BLOOD ORDERABLES Final Res ult [facility]) [facility] [address] [place] [address], documented in this encounter Visit Diagnoses Diagnosis Anemia, unspecified Migraine, unspecified, not intractable, without status migrainosus Hypothyroidism, unspecified documented in this encounter Care Teams Cardiovascular Physician Assistant Relationship Specialty Start Date End Date Jazz May NP [address] [place] [phone] PCP - General 09/17/21 documented as of this encounter
--- OUTSIDE RECORDS SUMMARY | 2025-03-10 11:14 | XMS_ITS | Encounter Summary ---
Author Organization [facility] Address [address] [place] [address] Care Team Providers Care Landscaping And Groundskeeping Laborer Name Role Phone Jazz May APRN Primary Care Provider [phone]- [phone] Encounter Details Date Type Department Care Team (Latest Contact Info) Description 08/25/2020 Lab Requisition [facility] [address] [place] [address] [address] [place] [phone] Corky Hogue PA-C [address] [place] [address] Encounter for laboratory testing for COVID-19 virus [...] Catrachito Avendano, Ph.D., Laboratory DirectorTests performed at [email or web address] Microbiology Nasopharyngeal swab / Unknown 08/25/2020 4:52 PM EST 08/25/2020 4:52 PM EST Narrative ZAK AGUIRRE - 08/26/2020 3:59 PM EST Performed by [facility] [address] [place] [address], CLIA# [id number] and [place] License# [id number] Corky Hgoue PA-C MICROBIOLOGY - GENERAL OR DERABLES Final Result ZAK AGUIRRE documented in this encounter Visit Diagnoses Diagnosis Encounter for laboratory testing for COVID-19 virus documented in this encounter Care Teams [employer]ounds[employer] Laborer Relationship Specialty Start Date End Date Jazz May APRN [address] [place] [address] [place] [address] PCP - General Family Medicine 08/25/20 documented as of this encounter
== END 2025-03-10 11:06 | disposition home or self-care (01) ==
LOC: HO.HUSH 10:33
PROVIDERS: PCP Nurse Practitioner Family; Visit Provider Urology
DX: Z13.9 Encounter for screening, unspecified (principal); N20.0 Calculus of kidney
CPT/HCPCS: 99213

== ENCOUNTER → 2025-03-10 10:32 | Outpatient (BNVA) | payer OTHER, SELFPAY | PROVIDERS: PCP Nurse Practitioner Family; Visit Provider Urology | DX: N20.0 Calculus of kidney (principal) | CPT/HCPCS: 81003 ==